=== PATIENT | male | born 1940 | race Caucasian/White ===

== ENCOUNTER → 2017-03-20 | Day surgery (SDC) | payer OTHER ==
[2017-03-13 10:19] VITALS: Ht 167.6 cm; Wt 81.8 kg
[~2017-03-20] VITALS: Ht 167.6 cm; Wt 81.8 kg
[~2017-03-20] MED LIST: ACET-749 PO; ACETAMINOPHEN/CODEINE 300/30MG TAB PO PRN; ASCO500T16 PO; ASPI-232 PO; ATROPINE SULFATE 0.1 MG/ML 5ML SYR IV PRN; BUPIVACAINE 0.5 % 5 MG/1 ML MPF 30ML VIAL ONE; CEFAZOLIN 2000 MG/60 ML D5W IV SCH; FENTANYL CITRATE INJ 50 MCG/1 ML 2 ML VIAL IV PRN; FENTANYL CITRATE INJ 50 MCG/1 ML 2 ML VIAL ONE; FERR1TAB23 PO; LABETALOL HCL IV 5 MG/ML 20ML IV PRN; LACTATED RINGER'S 1000ML 1,000 ML IV SCH; LIDOCAINE HCL 2% LOCAL 20 ML VIAL ONE; MIDAZOLAM HCL 1 MG/ML 2ML VIAL ONE; OMEGCAP2 PO; ONDANSETRON INJ 2 MG/ML 2 ML VIAL IV PRN; PANT40TA PO; SIMV40TA4 PO; SODIUM CHLORIDE 0.9% 1000ML 1,000 ML IV SCH; SOTA80TA PO; [UNRECOGNIZED DRUG - CODE] PO
--- NOTE | 2017-03-20 06:59 | History & Physical Bridge - [place] ---
H&P Re-Evaluation Bridge Note: I have examined the patient, reviewed the History & Physical and in the interval since the performance of the History & Physical I have noted the following changes of clinical significance: No changes noted
--- NOTE | 2017-03-20 08:23 | Discharge Instructions-SurgCtr ---
Discharge Instructions Date of Service Mar 20, 2017. Visit Reason for Visit: Right Carpal Tunnel Syndrome Discharge Discharge Diagnosis / Problem: right carpal tunnel syndrome Discharge Goals Goal(s): Decrease discomfort, Improve function, Therapeutic intervention Activity Recommendations Activity Limitations: per Instructions/Follow-up section Anesthesia . Post Anesthesia Instructions: If you have had General Anesthesia or IV Sedation: * Do not drive today. * Resume driving when surgeon permits. * Do not make important decisions or sign legal documents today. * Call surgeon for: 1. Temperature elevations greater than 101 degrees F. 2. Uncontrollable pain. 3. Excessive bleeding. 4. Persistent nausea and vomiting. 5. Medication intolerance (nausea, vomiting or rash). * For nausea and vomiting use only clear liquids such as: tea, soda, bouillon until nausea subsides, then gradually increase diet as tolerated. * If you have any concerns or questions, call your surgeon's office. If physician is unavailable and it is an emergency, call 911 or go to the nearest emergency room. . Instructions / Follow-Up Instructions / Follow-Up MEDICATIONS: * Resume previous medications unless instructed otherwise by your surgeon. * Always take pain medication on a full stomach or with food to avoid upset stomach. * Do not drink alcohol or drive while taking narcotics. * Ibuprofen or Tylenol may be taken if narcotic not needed. SPECIAL CARE INSTRUCTIONS: __ None __ Keep extremity elevated and iced x 48 hours; apply ice 20-30 minutes 8-10 times/day. May remove at night. __ Sling __24 hrs/day __ Remove at night __ Shoulder Immobilizer __ 24 hrs/day __ Remove at night _x_ Dressing _x_ Maintain until seen in office, may shower with plastic over site __ Remove dressings in 24-48 hours and then may shower __ Cover incisions with band-aids after showering __ Do not remove steri-strips Call physician if chills or temperature rises above 102 degrees or pain unrelieved by prescribed pain medications at . Limited use of right hand follow up in 2 weeks . Diet Recommendations Home Diet: resume previous diet Procedures Procedures Performed: Right Carpal Tunnel Release Pending Studies Studies pending at discharge: no Medical Emergencies . Who to Call and When: Medical Emergencies: If at any time you feel your situation is an emergency, please call 911 immediately. . Non-Emergent Contact Non-Emergency issues call your: Surgeon . . "Provider Documentation" section prepared by Roman Golden. .
--- NOTE | 2017-03-20 08:26 | [facility] Post Operative Brief Note ---
Immediate Operative Summary Operative Date Mar 20, 2017. Pre-Operative Diagnosis Right Carpal Tunnel Syndrome Post-Operative Diagnosis same as preop Procedure(s) Performed Right Carpal Tunnel Release Surgeon DR. Gonsalves Trim Stencil Maker Surgeon(s) JENNIFER Cedeño Estimated Blood Loss 1ml Findings Right Carpal Tunnel Syndrome Specimens none, per surgeon Anesthesia Local with IV Sedation Complication(s) None Disposition Recovery Room / PACU
[2017-03-20 08:32] VITALS: TEMP 36.3
[2017-03-20 09:03] VITALS: BP 107/71; PULSE 53; O2SAT 95
--- NOTE | 2017-03-20 09:24 | Anesthesia Progress Nt - [facility] ---
Anesthesia Post Op Note Date & Time Mar 20, 2017 at 09:24 Vital Signs Pain Intensity: 0 Vital Signs Past 12 Hours Date Time Temp Pulse Resp B/P (MAP) Pulse Ox O2 Delivery O2 Flow Rate FiO2 03/20/17 09:03 53 16 107/71 (83) 95 Room Air 03/20/17 08:32 36.3 54 16 110/69 (83) 93 Room Air 03/20/17 06:29 36.6 56 22 99/ (33) 94 Room Air Notes Mental Status: alert / awake / arousable, participated in evaluation Pt Amnestic to Procedure: Yes Nausea / Vomiting: adequately controlled Pain: adequately controlled Airway Patency, RR, SpO2: stable & adequate BP & HR: stable & adequate Hydration State: stable & adequate Anesthetic Complications: no major complications apparent
--- NOTE | 2017-03-20 13:01 | OPERATIVE REPORT ---
DATE OF OPERATION: 03/20/2017 SURGEON: Dr. Martinez Gonsalves. MANAGING MEMBER: KIMBERLY Obando. PREOPERATIVE DIAGNOSIS: Right carpal tunnel syndrome. POSTOPERATIVE DIAGNOSIS: Same. PROCEDURE PERFORMED: Right carpal tunnel release. COMPLICATIONS: None. ESTIMATED BLOOD LOSS: Minimal. TOURNIQUET TIME: 6 minutes at 250 mmHg. OPERATIVE INDICATIONS: The patient is a 76-year-old gentleman, who has had a several month history of gradually increasing progressive right hand pain, discomfort, numbness and dysfunction. He had nerve studies that revealed moderate carpal tunnel syndrome. It was affecting his quality of life and he elected to proceed with surgical treatment. OPERATIVE PROCEDURE: The patient taken to the operating room, identified and placed on the operating table in supine position. All contact areas were appropriately padded. IV antibiotics were provided by anesthesia team. A right forearm tourniquet was placed. Some IV sedation was provided. 9 mL of a 50:50 combination of 0.5% Marcaine and 2% lidocaine were then injected in and around the proposed incision site. The right hand was then prepped and draped in the usual sterile fashion. The right arm was elevated and exsanguinated with Esmarch and tourniquet was placed at 250 mmHg. A 2.5-3 cm incision was made in the palm just ulnar to the palmaris longus tendon. Blunt dissection was carried out through the subcutaneous tissues down to the level of the palmar fascia. Palmar fascia was incised longitudinally in line with skin incision. The underlying transverse carpal ligament was identified. It was transected distally with use of a [place] blade knife and then bluntly spread. Attention was then drawn proximally. Blunt dissection was carried out above and below the ligament proximally. The ligament was then transected for a minimum distance of 3 cm proximal to the wrist flexion crease. The ligament was bluntly spread and found to be completely released. The wound was irrigated with copious amounts of normal saline. The tourniquet was then let down for final tourniquet time of 6 minutes. Hemostasis was assured with use of electrocautery. The wound was once again irrigated. The skin was then closed with 5-0 nylon suture in a horizontal mattress fashion. The hand was then cleaned and dried and a sterile dressing of Xeroform, 4 x 4, sterile cast padding and an Carrington bandage were applied. The patient then transferred to the recovery room in stable condition. The patient tolerated the procedure well with no complications. All needle and sponge counts were correct at the end of the operation. I attest to the content of the Intraoperative Record and any orders documented therein. Any exceptions are noted below. MTDD
== END | disposition home or self-care (01) ==
LOC: X.SURG 06:13
PROVIDERS: ATTEND Orthopaedic Surgery Sports Medicine
DX: G56.01 Carpal tunnel syndrome, right upper limb (principal); I48.91 Unspecified atrial fibrillation